=== PATIENT | female | born 1985 | race Caucasian/White ===

== ENCOUNTER 2020-11-06 10:20 | Inpatient (IN) | payer OTHER ==
[2020-11-06 10:46] VITALS: BMI 27.4
[2020-11-06] MEDS ORDERED: MAGNESIUM HYDROX 2400MG/30ML ORAL SUSPENSION 30 ML CUP PO PRN (11:54)
[2020-11-06] MEDS ORDERED: METHOCARBAMOL 500 MG TABLET PO PRN (11:54)
[2020-11-06] MEDS ORDERED: MENTHOL/PHENOL 1 EACH UD MM PRN (11:54)
[2020-11-06] MEDS ORDERED: NICOTINE 10 MG CARTRIDGE (INHALER) IH PRN (11:54)
[2020-11-06] MEDS ORDERED: BISMUTH SUBSALICYLATE 524 MG/30 ML PO PRN (11:54)
[2020-11-06] MEDS ORDERED: ACETAMINOPHEN 325 MG TABLET (FP) PO PRN ×2 (11:54)
[2020-11-06] MEDS ORDERED: MAG HYDROX/AL HYDROX/SIMETH 30 ML UNIT-DOSE CUP PO PRN (11:54)
[2020-11-06] MEDS ORDERED: IBUPROFEN 400 MG TABLET (FP) PO PRN (11:54)
[2020-11-06] MEDS ORDERED: ONDANSETRON *ODT* 4 MG TABLET SL PRN (11:54)
[2020-11-06] MEDS ORDERED: MAGNESIUM CITRATE 300 ML BOTTLE PO PRN (11:54)
[2020-11-06] MEDS: diazePAM 5 MG TABLET PO PRN (13:43)
[2020-11-06] MEDS: PRENATAL VITAMINS W/ FOLIC ACID TABLET (FP) PO SCH (13:45)
[2020-11-06] MEDS: hydrOXYzine PAMOATE 25 MG CAPSULE (FP) PO SCH ×3 (13:45→22:21)
[2020-11-06] MEDS: NICOTINE 14 MG/24 HOURS TOPICAL PATCH TD SCH (13:45)
[2020-11-06 15:12] LABS: HEMATOCRIT 41.7 % (32.4-45.2); HEMOGLOBIN 14.4 GM/dL (10.7-15.3); MCH 31.3 pg (25.7-33.7); MCHC 34.6 g/dl (32.0-36.0); MEAN CELL VOLUME 90.4 fl (80-96); MEAN PLT VOLUME 8.6 fl (7.5-11.1); PLATELET COUNT 285 10^3/uL (134-434); RBC 4.61 M/mm3 (3.60-5.2); WHITE BLOOD COUNT 7.2 K/mm3 (4.0-10.0)
[2020-11-06 15:22] LABS: BLOOD UREA NITROGEN 9.8 mg/dL (7-18); CALCIUM 8.8 mg/dL (8.5-10.1)
[2020-11-06 15:23] LABS: ALBUMIN 3.8 g/dl (3.4-5.0)
[2020-11-06 15:26] LABS: CREATININE 0.6 mg/dL (0.55-1.3)
[2020-11-06 15:27] LABS: BILIRUBIN,TOTAL 0.4 mg/dL (0.2-1); TOT PROT 7.2 g/dl (6.4-8.2)
[2020-11-06] MEDS: diazePAM 5 MG TABLET PO SCH ×2 (18:07→22:21)
[2020-11-06] MEDS ORDERED: MELATONIN 5 MG TABLETS PO SCH (22:00)
[2020-11-06] MEDS: THIAMINE HCL 100 MG TABLET (FP) PO SCH (22:21)
[2020-11-07] MEDS: hydrOXYzine PAMOATE 25 MG CAPSULE (FP) PO SCH ×5 (05:51→22:52)
[2020-11-07] MEDS: diazePAM 5 MG TABLET PO SCH ×4 (05:51→22:26)
[2020-11-07] MEDS: PRENATAL VITAMINS W/ FOLIC ACID TABLET (FP) PO SCH (10:33)
[2020-11-07] MEDS: NICOTINE 14 MG/24 HOURS TOPICAL PATCH TD SCH (10:33)
[2020-11-07] MEDS: HALOPERIDOL 5 MG TABLET PO SCH ×2 (12:06→22:26)
[2020-11-07] MEDS: POTASSIUM CHLORIDE TABS 20 MEQ TABLET.ER (FP) PO SCH ×2 (13:19→17:21)
[2020-11-07] MEDS: THIAMINE HCL 100 MG TABLET (FP) PO SCH (22:26)
[2020-11-07] MEDS: QUEtiapine FUMARATE 100 MG TABLET (FP) PO SCH (22:48)
[2020-11-08] MEDS: hydrOXYzine PAMOATE 25 MG CAPSULE (FP) PO SCH ×5 (06:03→22:31)
[2020-11-08] MEDS: diazePAM 5 MG TABLET PO SCH ×3 (06:03→22:32)
[2020-11-08] MEDS: POTASSIUM CHLORIDE TABS 20 MEQ TABLET.ER (FP) PO SCH ×2 (10:33→17:20)
[2020-11-08] MEDS: NICOTINE 14 MG/24 HOURS TOPICAL PATCH TD SCH (10:34)
[2020-11-08] MEDS: PRENATAL VITAMINS W/ FOLIC ACID TABLET (FP) PO SCH (10:34)
[2020-11-08] MEDS: HALOPERIDOL 5 MG TABLET PO SCH ×2 (11:27→22:34)
[2020-11-08] MEDS: THIAMINE HCL 100 MG TABLET (FP) PO SCH (22:31)
[2020-11-08] MEDS: QUEtiapine FUMARATE 100 MG TABLET (FP) PO SCH (22:31)
[2020-11-09] MEDS: diazePAM 5 MG TABLET PO SCH ×2 (06:00→17:29)
[2020-11-09] MEDS: hydrOXYzine PAMOATE 25 MG CAPSULE (FP) PO SCH ×5 (06:01→21:22)
[2020-11-09] MEDS: PRENATAL VITAMINS W/ FOLIC ACID TABLET (FP) PO SCH (10:30)
[2020-11-09] MEDS: diazePAM 5 MG TABLET PO PRN (10:30)
[2020-11-09] MEDS: HALOPERIDOL 5 MG TABLET PO SCH ×2 (10:31→21:22)
[2020-11-09] MEDS: NICOTINE 14 MG/24 HOURS TOPICAL PATCH TD SCH (10:31)
[2020-11-09] MEDS: POTASSIUM CHLORIDE TABS 20 MEQ TABLET.ER (FP) PO SCH ×2 (10:31→17:29)
[2020-11-09] MEDS: BACITRACIN 0.9 GM PACKET TP SCH ×2 (13:58→21:22)
[2020-11-09] MEDS: QUEtiapine FUMARATE 100 MG TABLET (FP) PO SCH (21:22)
[2020-11-09] MEDS: THIAMINE HCL 100 MG TABLET (FP) PO SCH (21:22)
[2020-11-10] MEDS ORDERED: diazePAM 5 MG TABLET PO ONE (06:00)
[2020-11-10] MEDS: hydrOXYzine PAMOATE 25 MG CAPSULE (FP) PO SCH ×2 (06:19→12:10)
[2020-11-10 08:42] VITALS: BP 126/79; PULSE 105; TEMP 97.7
[2020-11-10] MEDS: PRENATAL VITAMINS W/ FOLIC ACID TABLET (FP) PO SCH (12:09)
[2020-11-10] MEDS: POTASSIUM CHLORIDE TABS 20 MEQ TABLET.ER (FP) PO SCH (12:09)
[2020-11-10] MEDS: HALOPERIDOL 5 MG TABLET PO SCH (12:09)
[2020-11-10] MEDS: NICOTINE 14 MG/24 HOURS TOPICAL PATCH TD SCH (12:09)
[2020-11-10] MEDS: BACITRACIN 0.9 GM PACKET TP SCH (12:10)
== END 2020-11-10 09:41 | disposition home or self-care (01) | DRG 897 ==
LOC: YASAS 10:20 → Y3N 12:12 → Y6N 20:51
PROVIDERS: ADMIT Allergy & Immunology; ATTEND Allergy & Immunology
PROC: HZ2ZZZZ Detoxification Services for Substance Abuse Treatment (ICD-10-PCS; principal; 2020-11-06)
DX: F10.230 Alcohol dependence with withdrawal, uncomplicated (principal); F14.20 Cocaine dependence, uncomplicated; F19.282 Other psychoactive substance dependence with psychoactive substance-induced sleep disorder; F12.20 Cannabis dependence, uncomplicated; F16.10 Hallucinogen abuse, uncomplicated; F17.210 Nicotine dependence, cigarettes, uncomplicated; F25.9 Schizoaffective disorder, unspecified; F19.24 Other psychoactive substance dependence with psychoactive substance-induced mood disorder; E87.6 Hypokalemia; J45.909 Unspecified asthma, uncomplicated; Z62.810 Personal history of physical and sexual abuse in childhood; Z90.49 Acquired absence of other specified parts of digestive tract; Z59.0 Homelessness
CPT/HCPCS: 36415; 80053; 85027; 86780; 93005; 93010; C9803; U0003; U0005

== ENCOUNTER 2021-01-27 16:56 | Inpatient (IN) | payer OTHER ==
[2021-01-27 18:42] VITALS: BMI 26.8
[2021-01-27] MEDS ORDERED: hydrOXYzine PAMOATE 25 MG CAPSULE (FP) PO PRN (19:13)
[2021-01-27] MEDS ORDERED: ACETAMINOPHEN 325 MG TABLET (FP) PO PRN ×2 (19:13)
[2021-01-27] MEDS ORDERED: MENTHOL/PHENOL 1 EACH UD MM PRN (19:13)
[2021-01-27] MEDS ORDERED: IBUPROFEN 400 MG TABLET (FP) PO PRN (19:13)
[2021-01-27] MEDS ORDERED: MAGNESIUM CITRATE 300 ML BOTTLE PO PRN (19:13)
[2021-01-27] MEDS ORDERED: NICOTINE POLACRILEX 2 MG GUM BUC PRN (19:13)
[2021-01-27] MEDS ORDERED: MAGNESIUM HYDROX 2400MG/30ML ORAL SUSPENSION 30 ML CUP PO PRN (19:13)
[2021-01-27] MEDS ORDERED: ONDANSETRON *ODT* 4 MG TABLET SL PRN (19:13)
[2021-01-27] MEDS ORDERED: BISMUTH SUBSALICYLATE 524 MG/30 ML PO PRN (19:13)
[2021-01-27] MEDS ORDERED: MAG HYDROX/AL HYDROX/SIMETH 30 ML UNIT-DOSE CUP PO PRN (19:13)
[2021-01-27] MEDS ORDERED: METHOCARBAMOL 500 MG TABLET PO PRN (19:13)
[2021-01-27] MEDS ORDERED: diazePAM 5 MG TABLET PO PRN (19:23)
[2021-01-27] MEDS ORDERED: MELATONIN 5 MG TABLETS PO SCH (22:00)
[2021-01-27] MEDS ORDERED: DIVALPROEX SODIUM 250 MG TABLET E.C. PO ONE (22:00)
[2021-01-27] MEDS ORDERED: THIAMINE HCL 100 MG TABLET (FP) PO SCH (22:00)
[2021-01-27] MEDS: BACITRACIN 0.9 GM PACKET TP SCH (23:19)
[2021-01-28] MEDS ORDERED: AMOX TR/POT CLAV 875MG/125MG TABLETS (FP) PO SCH (08:00)
[2021-01-28 08:49] VITALS: BP 118/68; PULSE 72; TEMP 97.1
[2021-01-28] MEDS ORDERED: PRENATAL VITAMINS W/ FOLIC ACID TABLET (FP) PO SCH (10:00)
[2021-01-28] MEDS: BACITRACIN 0.9 GM PACKET TP SCH (10:50)
[2021-01-28 14:01] LABS: HEMATOCRIT 43.4 % (32.4-45.2); HEMOGLOBIN 14.6 GM/dL (10.7-15.3); MCH 30.9 pg (25.7-33.7); MCHC 33.6 g/dl (32.0-36.0); MEAN CELL VOLUME 92.1 fl (80-96); MEAN PLT VOLUME 8.5 fl (7.5-11.1); PLATELET COUNT 326 10^3/uL (134-434); RBC 4.71 M/mm3 (3.60-5.2); RDW 14.5 % (11.6-15.6); WHITE BLOOD COUNT 6.3 K/mm3 (4.0-10.0)
[2021-01-28 14:18] LABS: BLOOD UREA NITROGEN 12.4 mg/dL (7-18)
[2021-01-28 14:20] LABS: CREATININE 0.6 mg/dL (0.55-1.3)
[2021-01-28 14:21] LABS: CALCIUM 9.2 mg/dL (8.5-10.1)
[2021-01-28 14:22] LABS: BILIRUBIN,TOTAL 0.3 mg/dL (0.2-1)
[2021-01-28 14:25] LABS: TOT PROT 6.4 g/dl (6.4-8.2)
[2021-01-28 16:04] LABS: HIV INTERPRETATION NEGATIVE (NEGATIVE)
== END 2021-01-28 11:00 | disposition home or self-care (01) | DRG 897 ==
LOC: YASAS 16:56 → Y3N 19:44
PROVIDERS: ADMIT Allergy & Immunology; ATTEND Allergy & Immunology
PROC: HZ2ZZZZ Detoxification Services for Substance Abuse Treatment (ICD-10-PCS; principal; 2021-01-27)
DX: F19.230 Other psychoactive substance dependence with withdrawal, uncomplicated (principal); F14.20 Cocaine dependence, uncomplicated; F12.20 Cannabis dependence, uncomplicated; F16.10 Hallucinogen abuse, uncomplicated; F17.210 Nicotine dependence, cigarettes, uncomplicated; F31.75 Bipolar disorder, in partial remission, most recent episode depressed; J45.20 Mild intermittent asthma, uncomplicated; R00.0 Tachycardia, unspecified
CPT/HCPCS: 36415; 80053; 81025; 85027; 86780; 87389; C9803; U0003; U0005

== ENCOUNTER 2021-05-03 14:30 | Inpatient (IN) | payer OTHER ==
[2021-05-03 15:18] VITALS: BMI 22.6
[2021-05-03] MEDS ORDERED: MENTHOL/PHENOL 1 EACH UD MM PRN (17:05)
[2021-05-03] MEDS ORDERED: ONDANSETRON *ODT* 4 MG TABLET SL PRN (17:05)
[2021-05-03] MEDS ORDERED: MAGNESIUM CITRATE 300 ML BOTTLE PO PRN (17:05)
[2021-05-03] MEDS ORDERED: BISMUTH SUBSALICYLATE 524 MG/30 ML PO PRN (17:05)
[2021-05-03] MEDS ORDERED: MAG HYDROX/AL HYDROX/SIMETH 30 ML UNIT-DOSE CUP PO PRN (17:05)
[2021-05-03] MEDS ORDERED: ACETAMINOPHEN 325 MG TABLET (FP) PO PRN ×2 (17:05)
[2021-05-03] MEDS ORDERED: IBUPROFEN 400 MG TABLET (FP) PO PRN (17:05)
[2021-05-03] MEDS ORDERED: METHOCARBAMOL 500 MG TABLET PO PRN (17:05)
[2021-05-03] MEDS ORDERED: MAGNESIUM HYDROX 2400MG/30ML ORAL SUSPENSION 30 ML CUP PO PRN (17:05)
[2021-05-03] MEDS ORDERED: chlordiazePOXIDE HCL 25 MG CAPSULE PO PRN (17:05)
[2021-05-03] MEDS ORDERED: LOPERAMIDE HCL 2 MG CAPSULE PO PRN (17:05)
[2021-05-03] MEDS: hydrOXYzine PAMOATE 25 MG CAPSULE (FP) PO SCH ×2 (19:35→23:07)
[2021-05-03] MEDS ORDERED: MELATONIN 5 MG TABLETS PO SCH (22:00)
[2021-05-03] MEDS: THIAMINE HCL 100 MG TABLET (FP) PO SCH (23:07)
[2021-05-03] MEDS: chlordiazePOXIDE HCL 25 MG CAPSULE PO SCH (23:07)
[2021-05-04] MEDS: hydrOXYzine PAMOATE 25 MG CAPSULE (FP) PO SCH ×5 (06:43→22:12)
[2021-05-04] MEDS: chlordiazePOXIDE HCL 25 MG CAPSULE PO SCH ×4 (06:43→22:12)
[2021-05-04] MEDS: PRENATAL VITAMINS W/ FOLIC ACID TABLET (FP) PO SCH (10:57)
[2021-05-04] MEDS: HALOPERIDOL 5 MG TABLET PO SCH ×2 (14:17→22:12)
[2021-05-04] MEDS: THIAMINE HCL 100 MG TABLET (FP) PO SCH (22:12)
[2021-05-04] MEDS: QUEtiapine FUMARATE 100 MG TABLET (FP) PO SCH (22:12)
[2021-05-05] MEDS: hydrOXYzine PAMOATE 25 MG CAPSULE (FP) PO SCH ×5 (06:35→22:17)
[2021-05-05] MEDS: chlordiazePOXIDE HCL 25 MG CAPSULE PO SCH ×4 (06:35→22:17)
[2021-05-05] MEDS: HALOPERIDOL 5 MG TABLET PO SCH ×2 (10:39→22:17)
[2021-05-05] MEDS: PRENATAL VITAMINS W/ FOLIC ACID TABLET (FP) PO SCH (10:39)
[2021-05-05 11:30] LABS: HEMATOCRIT 40.6 % (32.4-45.2); HEMOGLOBIN 13.3 GM/dL (10.7-15.3); MCH 30.1 pg (25.7-33.7); MCHC 32.9 g/dl (32.0-36.0); MEAN CELL VOLUME 91.6 fl (80-96); MEAN PLT VOLUME 8.5 fl (7.5-11.1); PLATELET COUNT 322 10^3/uL (134-434); RBC 4.43 M/mm3 (3.60-5.2); RDW 13.6 % (11.6-15.6); WHITE BLOOD COUNT 7.6 K/mm3 (4.0-10.0)
[2021-05-05 11:35] LABS: CALCIUM 8.5 mg/dL (8.5-10.1)
[2021-05-05 11:36] LABS: ALBUMIN 2.9 g/dl (3.4-5.0); BLOOD UREA NITROGEN 7.4 mg/dL (7-18)
[2021-05-05 11:39] LABS: CREATININE 0.5 mg/dL (0.55-1.3)
[2021-05-05 11:40] LABS: BILIRUBIN,TOTAL 0.5 mg/dL (0.2-1); TOT PROT 5.5 g/dl (6.4-8.2)
[2021-05-05] MEDS: QUEtiapine FUMARATE 100 MG TABLET (FP) PO SCH (22:17)
[2021-05-05] MEDS: THIAMINE HCL 100 MG TABLET (FP) PO SCH (22:17)
[2021-05-06] MEDS ORDERED: chlordiazePOXIDE HCL 10 MG CAPSULE PO PRN
[2021-05-06] MEDS: chlordiazePOXIDE HCL 10 MG CAPSULE PO SCH ×4 (06:34→22:25)
[2021-05-06] MEDS: hydrOXYzine PAMOATE 25 MG CAPSULE (FP) PO SCH ×5 (06:34→22:25)
[2021-05-06] MEDS: PRENATAL VITAMINS W/ FOLIC ACID TABLET (FP) PO SCH (10:43)
[2021-05-06] MEDS: HALOPERIDOL 5 MG TABLET PO SCH ×2 (10:44→22:26)
[2021-05-06] MEDS: NICOTINE 10 MG CARTRIDGE (INHALER) IH PRN (20:13)
[2021-05-06] MEDS: THIAMINE HCL 100 MG TABLET (FP) PO SCH (22:25)
[2021-05-06] MEDS: QUEtiapine FUMARATE 100 MG TABLET (FP) PO SCH (22:25)
[2021-05-07] MEDS: chlordiazePOXIDE HCL 10 MG CAPSULE PO SCH ×2 (06:59→17:35)
[2021-05-07] MEDS: hydrOXYzine PAMOATE 25 MG CAPSULE (FP) PO SCH ×5 (06:59→22:09)
[2021-05-07] MEDS: HALOPERIDOL 5 MG TABLET PO SCH ×2 (10:56→22:07)
[2021-05-07] MEDS: PRENATAL VITAMINS W/ FOLIC ACID TABLET (FP) PO SCH (10:56)
[2021-05-07] MEDS: NICOTINE 10 MG CARTRIDGE (INHALER) IH PRN ×2 (17:55→22:07)
[2021-05-07] MEDS: QUEtiapine FUMARATE 100 MG TABLET (FP) PO SCH (22:07)
[2021-05-07] MEDS: THIAMINE HCL 100 MG TABLET (FP) PO SCH (22:08)
[2021-05-08] MEDS ORDERED: chlordiazePOXIDE HCL 10 MG CAPSULE PO ONE (05:00)
[2021-05-08] MEDS: hydrOXYzine PAMOATE 25 MG CAPSULE (FP) PO SCH ×4 (07:10→17:35)
[2021-05-08] MEDS: HALOPERIDOL 5 MG TABLET PO SCH (10:25)
[2021-05-08] MEDS: PRENATAL VITAMINS W/ FOLIC ACID TABLET (FP) PO SCH (10:25)
[2021-05-08] MEDS: NICOTINE 10 MG CARTRIDGE (INHALER) IH PRN (17:35)
[2021-05-08 17:46] VITALS: BP 97/57; PULSE 87; TEMP 97.1
== END 2021-05-08 19:08 | disposition home or self-care (01) | DRG 897 ==
LOC: YASAS 14:30 → Y3N 18:59
PROVIDERS: ADMIT Allergy & Immunology; ATTEND Allergy & Immunology
PROC: HZ2ZZZZ Detoxification Services for Substance Abuse Treatment (ICD-10-PCS; principal; 2021-05-03)
DX: F10.230 Alcohol dependence with withdrawal, uncomplicated (principal); F14.20 Cocaine dependence, uncomplicated; F12.20 Cannabis dependence, uncomplicated; F16.10 Hallucinogen abuse, uncomplicated; F17.210 Nicotine dependence, cigarettes, uncomplicated; F25.9 Schizoaffective disorder, unspecified; J45.909 Unspecified asthma, uncomplicated; Z62.810 Personal history of physical and sexual abuse in childhood; Z59.00 Homelessness unspecified
CPT/HCPCS: 36415; 80053; 81025; 85027; 86780; 87811; C9803; U0003; U0005

== ENCOUNTER 2021-05-28 11:57 | Inpatient (IN) | payer OTHER ==
[2021-05-28] MEDS ORDERED: ACETAMINOPHEN 325 MG TABLET (FP) PO PRN ×2 (12:35)
[2021-05-28] MEDS ORDERED: BISMUTH SUBSALICYLATE 524 MG/30 ML PO PRN (12:35)
[2021-05-28] MEDS ORDERED: DICYCLOMINE HCL 10 MG CAPSULE PO PRN (12:35)
[2021-05-28] MEDS ORDERED: ONDANSETRON *ODT* 4 MG TABLET SL PRN (12:35)
[2021-05-28] MEDS ORDERED: MAG HYDROX/AL HYDROX/SIMETH 30 ML UNIT-DOSE CUP PO PRN (12:35)
[2021-05-28] MEDS ORDERED: IBUPROFEN 400 MG TABLET (FP) PO PRN (12:35)
[2021-05-28] MEDS ORDERED: MENTHOL/PHENOL 1 EACH UD MM PRN (12:35)
[2021-05-28] MEDS ORDERED: LOPERAMIDE HCL 2 MG CAPSULE PO PRN (12:35)
[2021-05-28] MEDS ORDERED: MAGNESIUM HYDROX 2400MG/30ML ORAL SUSPENSION 30 ML CUP PO PRN (12:35)
[2021-05-28] MEDS ORDERED: MAGNESIUM CITRATE 300 ML BOTTLE PO PRN (12:35)
[2021-05-28] MEDS ORDERED: chlordiazePOXIDE HCL 25 MG CAPSULE PO PRN (12:35)
[2021-05-28] MEDS ORDERED: METHOCARBAMOL 500 MG TABLET PO PRN (12:35)
[2021-05-28 15:00] VITALS: BMI 21.7
[2021-05-28] MEDS: DIVALPROEX SODIUM 250 MG TABLET E.C. PO SCH ×2 (17:45→22:56)
[2021-05-28] MEDS: PRENATAL VITAMINS W/ FOLIC ACID TABLET (FP) PO SCH (17:45)
[2021-05-28] MEDS: hydrOXYzine PAMOATE 25 MG CAPSULE (FP) PO SCH ×3 (17:45→22:56)
[2021-05-28] MEDS: chlordiazePOXIDE HCL 25 MG CAPSULE PO SCH ×2 (17:46→22:56)
[2021-05-28 18:26] LABS: HEMATOCRIT 42.1 % (32.4-45.2); HEMOGLOBIN 14.3 GM/dL (10.7-15.3); MCH 31.1 pg (25.7-33.7); MEAN CELL VOLUME 91.4 fl (80-96); MEAN PLT VOLUME 8.7 fl (7.5-11.1); PLATELET COUNT 384 10^3/uL (134-434); RBC 4.61 M/mm3 (3.60-5.2); RDW 14.1 % (11.6-15.6); WHITE BLOOD COUNT 11.4 K/mm3 (4.0-10.0)
[2021-05-28 18:33] LABS: BLOOD UREA NITROGEN 16.3 mg/dL (7-18); CREATININE 0.7 mg/dL (0.55-1.3)
[2021-05-28 18:34] LABS: ALBUMIN 3.2 g/dl (3.4-5.0)
[2021-05-28 18:35] LABS: BILIRUBIN,TOTAL 0.6 mg/dL (0.2-1); CALCIUM 9.2 mg/dL (8.5-10.1)
[2021-05-28] MEDS: THIAMINE HCL 100 MG TABLET (FP) PO SCH (22:56)
[2021-05-28] MEDS: MELATONIN 5 MG TABLETS PO SCH (22:56)
[2021-05-29] MEDS: DIVALPROEX SODIUM 250 MG TABLET E.C. PO SCH ×3 (07:34→23:10)
[2021-05-29] MEDS: hydrOXYzine PAMOATE 25 MG CAPSULE (FP) PO SCH ×5 (07:34→23:11)
[2021-05-29] MEDS: chlordiazePOXIDE HCL 25 MG CAPSULE PO SCH ×4 (07:34→23:11)
[2021-05-29] MEDS ORDERED: HALOPERIDOL 5 MG TABLET PO ONE (10:55)
[2021-05-29] MEDS: PRENATAL VITAMINS W/ FOLIC ACID TABLET (FP) PO SCH (11:19)
[2021-05-29] MEDS: HALOPERIDOL 5 MG TABLET PO SCH (23:10)
[2021-05-29] MEDS: MELATONIN 5 MG TABLETS PO SCH (23:10)
[2021-05-29] MEDS: QUEtiapine FUMARATE 50 MG TABLET PO SCH (23:10)
[2021-05-29] MEDS: THIAMINE HCL 100 MG TABLET (FP) PO SCH (23:12)
[2021-05-30] MEDS: hydrOXYzine PAMOATE 25 MG CAPSULE (FP) PO SCH ×5 (05:29→22:39)
[2021-05-30] MEDS: chlordiazePOXIDE HCL 25 MG CAPSULE PO SCH ×4 (05:29→22:41)
[2021-05-30] MEDS: DIVALPROEX SODIUM 250 MG TABLET E.C. PO SCH ×3 (05:29→22:38)
[2021-05-30] MEDS: PRENATAL VITAMINS W/ FOLIC ACID TABLET (FP) PO SCH (10:21)
[2021-05-30] MEDS: HALOPERIDOL 5 MG TABLET PO SCH ×2 (10:21→22:38)
[2021-05-30] MEDS: QUEtiapine FUMARATE 50 MG TABLET PO SCH (22:37)
[2021-05-30] MEDS: THIAMINE HCL 100 MG TABLET (FP) PO SCH (22:38)
[2021-05-30] MEDS: MELATONIN 5 MG TABLETS PO SCH (22:39)
[2021-05-31] MEDS ORDERED: chlordiazePOXIDE HCL 10 MG CAPSULE PO PRN
[2021-05-31] MEDS: hydrOXYzine PAMOATE 25 MG CAPSULE (FP) PO SCH ×5 (06:19→22:12)
[2021-05-31] MEDS: DIVALPROEX SODIUM 250 MG TABLET E.C. PO SCH ×3 (06:19→22:13)
[2021-05-31] MEDS: chlordiazePOXIDE HCL 10 MG CAPSULE PO SCH ×4 (06:19→22:13)
[2021-05-31] MEDS: PRENATAL VITAMINS W/ FOLIC ACID TABLET (FP) PO SCH (10:16)
[2021-05-31] MEDS: HALOPERIDOL 5 MG TABLET PO SCH ×2 (10:22→22:13)
[2021-05-31 14:08] LABS: SARS-CoV-2 NAA Not Detected (Not Detected)
[2021-05-31] MEDS: THIAMINE HCL 100 MG TABLET (FP) PO SCH (22:13)
[2021-05-31] MEDS: QUEtiapine FUMARATE 50 MG TABLET PO SCH (22:13)
[2021-05-31] MEDS: MELATONIN 5 MG TABLETS PO SCH (22:13)
[2021-06-01] MEDS: hydrOXYzine PAMOATE 25 MG CAPSULE (FP) PO SCH ×5 (06:41→22:07)
[2021-06-01] MEDS: DIVALPROEX SODIUM 250 MG TABLET E.C. PO SCH ×3 (06:41→22:07)
[2021-06-01] MEDS: chlordiazePOXIDE HCL 10 MG CAPSULE PO SCH ×2 (06:42→17:32)
[2021-06-01] MEDS: HALOPERIDOL 5 MG TABLET PO SCH ×2 (10:55→22:07)
[2021-06-01] MEDS: PRENATAL VITAMINS W/ FOLIC ACID TABLET (FP) PO SCH (10:55)
[2021-06-01] MEDS: MELATONIN 5 MG TABLETS PO SCH (22:07)
[2021-06-01] MEDS: QUEtiapine FUMARATE 50 MG TABLET PO SCH (22:07)
[2021-06-01] MEDS: THIAMINE HCL 100 MG TABLET (FP) PO SCH (22:07)
[2021-06-02] MEDS ORDERED: chlordiazePOXIDE HCL 10 MG CAPSULE PO ONE (05:00)
[2021-06-02] MEDS: hydrOXYzine PAMOATE 25 MG CAPSULE (FP) PO SCH ×5 (06:15→21:22)
[2021-06-02] MEDS: DIVALPROEX SODIUM 250 MG TABLET E.C. PO SCH ×3 (06:15→21:22)
[2021-06-02] MEDS: HALOPERIDOL 5 MG TABLET PO SCH ×2 (10:27→21:22)
[2021-06-02] MEDS: PRENATAL VITAMINS W/ FOLIC ACID TABLET (FP) PO SCH (10:28)
[2021-06-02] MEDS: NICOTINE 10 MG CARTRIDGE (INHALER) IH PRN (10:42)
[2021-06-02] MEDS: MELATONIN 5 MG TABLETS PO SCH (21:22)
[2021-06-02] MEDS: QUEtiapine FUMARATE 50 MG TABLET PO SCH (21:22)
[2021-06-02] MEDS: THIAMINE HCL 100 MG TABLET (FP) PO SCH (21:22)
[2021-06-03] MEDS: DIVALPROEX SODIUM 250 MG TABLET E.C. PO SCH ×3 (06:13→21:45)
[2021-06-03] MEDS: hydrOXYzine PAMOATE 25 MG CAPSULE (FP) PO SCH ×2 (06:13→10:45)
[2021-06-03] MEDS: NICOTINE 10 MG CARTRIDGE (INHALER) IH PRN ×2 (06:15→10:46)
[2021-06-03] MEDS: PRENATAL VITAMINS W/ FOLIC ACID TABLET (FP) PO SCH (10:41)
[2021-06-03] MEDS: HALOPERIDOL 5 MG TABLET PO SCH ×2 (10:45→21:45)
[2021-06-03] MEDS: THIAMINE HCL 100 MG TABLET (FP) PO SCH (21:45)
[2021-06-03] MEDS: MELATONIN 5 MG TABLETS PO SCH (21:45)
[2021-06-03] MEDS: QUEtiapine FUMARATE 50 MG TABLET PO SCH (21:45)
[2021-06-03] MEDS: METHYL SALICYLATE/MENTHOL OINT 30 GM TUBE TP SCH (21:45)
[2021-06-04] MEDS: DIVALPROEX SODIUM 250 MG TABLET E.C. PO SCH ×3 (05:52→21:16)
[2021-06-04] MEDS: PRENATAL VITAMINS W/ FOLIC ACID TABLET (FP) PO SCH (10:49)
[2021-06-04] MEDS: HALOPERIDOL 5 MG TABLET PO SCH ×2 (10:49→21:16)
[2021-06-04] MEDS: NICOTINE 10 MG CARTRIDGE (INHALER) IH PRN (12:42)
[2021-06-04] MEDS: THIAMINE HCL 100 MG TABLET (FP) PO SCH (21:16)
[2021-06-04] MEDS: MELATONIN 5 MG TABLETS PO SCH (21:16)
[2021-06-04] MEDS: QUEtiapine FUMARATE 50 MG TABLET PO SCH (21:16)
[2021-06-04] MEDS: METHYL SALICYLATE/MENTHOL OINT 30 GM TUBE TP SCH (21:18)
[2021-06-05] MEDS: DIVALPROEX SODIUM 250 MG TABLET E.C. PO SCH (06:08)
[2021-06-05 07:20] VITALS: BP 110/62; PULSE 99; TEMP 98.4
[2021-06-05] MEDS: HALOPERIDOL 5 MG TABLET PO SCH (10:43)
[2021-06-05] MEDS: PRENATAL VITAMINS W/ FOLIC ACID TABLET (FP) PO SCH (10:43)
== END 2021-06-05 12:10 | disposition home or self-care (01) | DRG 895 ==
LOC: YASAS 11:57 → Y3N 15:24 → Y5N 06-02 12:52
PROVIDERS: ADMIT Allergy & Immunology; ATTEND Allergy & Immunology
PROC: HZ2ZZZZ Detoxification Services for Substance Abuse Treatment (ICD-10-PCS; principal; 2021-05-28)
PROC: HZ42ZZZ Group Counseling for Substance Abuse Treatment, Cognitive-Behavioral (ICD-10-PCS; 2021-06-02)
DX: F10.230 Alcohol dependence with withdrawal, uncomplicated (principal); F14.20 Cocaine dependence, uncomplicated; F12.20 Cannabis dependence, uncomplicated; F16.10 Hallucinogen abuse, uncomplicated; F17.213 Nicotine dependence, cigarettes, with withdrawal; F25.9 Schizoaffective disorder, unspecified; F19.24 Other psychoactive substance dependence with psychoactive substance-induced mood disorder; J45.909 Unspecified asthma, uncomplicated; Z62.810 Personal history of physical and sexual abuse in childhood; Z56.0 Unemployment, unspecified; Z59.00 Homelessness unspecified
CPT/HCPCS: 36415; 80053; 81025; 85027; 86780; C9803-CS; U0003; U0005